=== PATIENT | female | born 2000 | race Caucasian/White ===

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

== ENCOUNTER 2018-05-15 11:13 | Emergency (ER) | payer MEDICAID ==
[~2018-05-15] VITALS: Ht 154.9 cm; Wt 53.6 kg
[2018-05-15 11:19] VITALS: Ht 154.9 cm; Wt 53.6 kg
[2018-05-15] MEDS ORDERED: OTC SLEEP AID (11:21)
[2018-05-15] MEDS ORDERED: PRENATAL (11:21)
[2018-05-15 11:42] LABS: BASOPHILS 0.3 % (0-2); EOSINOPHILS 0.5 % (0-7); HEMATOCRIT 39.1 % (36.0-48.0); HEMOGLOBIN 13.5 g/dL (12-16); IMMATURE GRANULOCYTES 0.4 % (0-5); LYMPHOCYTES 7.6 % (15-50); MCH 29.1 pg (26.0-34.0); MCHC 34.5 g/dL (31.0-37.0); MCV 84.3 fL (80.0-100.0); MEAN PLATELET VOLUME 9.7 fL (7.4-10.4); MONOCYTES 6.6 % (2-11); NEUTROPHILS 84.6 % (40-80); PLATELET COUNT 235 10x3/uL (130-400); RBC 4.64 10x6/uL (4.00-5.40); RDW 12.6 % (11.5-14.5); WBC 15.4 10x3/uL (4.8-10.8)
[2018-05-15 11:55] LABS: CREATININE - SERUM 0.7 mg/dL (0.6-1.3); GLUCOSE 95 mg/dL (74-106); UREA NITROGEN 7 mg/dL (7-18)
[2018-05-15 11:56] LABS: ALBUMIN 3.6 g/dL (3.4-5.0); ALKALINE PHOSPHATASE 67 U/L (46-116); ALT (SGPT) 61 U/L (10-68); BILIRUBIN - TOTAL 0.86 mg/dL (0.2-1.3); CALC OSMOLALITY 267 mosm/kg (275-300); CALCIUM 9.2 mg/dL (8.5-10.1); CARBON DIOXIDE 22.7 mmol/L (21.0-32.0); CHLORIDE - SERUM 100 mmol/L (98-107); POTASSIUM - SERUM 3.7 mmol/L (3.5-5.1); PROTEIN - SERUM 8.1 g/dL (6.4-8.2); SODIUM 135 mmol/L (136-145); eGFR NON AFRICAN AMERICAN > 90 mL/min (90-120)
[2018-05-15 12:26] LABS: APPEARANCE CLOUDY (CLEAR); BILIRUBIN NEGATIVE (NEGATIVE); COLOR DK YELLOW (YELLOW); GLUCOSE NEGATIVE (NEGATIVE); KETONE MODERATE mg/dL (NEGATIVE); NITRITE NEGATIVE (NEGATIVE); PROTEIN 1+ mg/dL (NEGATIVE); SPECIFIC GRAVITY 1.005 (1.005-1.020); UROBILINOGEN NORMAL (NORMAL)
[2018-05-15 12:28] LABS: BACTERIA FEW /hpf (NONE SEEN); EPITHELIAL CELLS 0-5 /hpf (0-5); MUCUS <1+ /lpf (NONE SEEN); RED CELLS - URINE 0-5 /hpf (0-5); WHITE CELLS - URINE 0-5 /hpf (0-5)
[2018-05-15] MEDS ORDERED: NORMODYNE / TR100 MG PO (13:12)
[2018-05-15 13:28] VITALS: BP 122/78
== END 2018-05-15 13:31 | disposition home or self-care (01) ==
LOC: D.ER 11:13
PROVIDERS: Emergency Medicine
DX: O26.891 Other specified pregnancy related conditions, first trimester (principal); Z3A.12 12 weeks gestation of pregnancy; R00.0 Tachycardia, unspecified; R06.02 Shortness of breath

== ENCOUNTER → 2018-06-03 08:26 | Outpatient (CLI) | payer BC ==
[2018-05-15 11:19] VITALS: BMI 22.3
--- NOTE | ~2018-06-03 | EC ---
PATIENT:EZIO HARDY DATE OF SERVICE: 06/03/18 SEX: F MEDICAL RECORD: [id number] DATE OF : [birth year] LOCATION:D.FORMERLY [facility] AGE OF PATIENT: 17 ADMISSION DATE: 06/03/18 REFERRING PHYSICIAN: INTERPRETING PHYSICIAN: HERNANDEZ SMITH MD ECHOCARDIOGRAM REPORT ECHO CHARGES 4 ECHO COMPLETE Date: 06/03/18 CLINICAL DIAGNOSIS: TACHYCARDIA, CHEST PAIN ECHOCARDIOGRAPHIC MEASUREMENTS (adult normal given) AC root (d.<3.7cm) 2.3 cm LV Septum d (<1.2 cm> 1.0 cm Valve Excursion 1.3 cm LV Septum (systole) 1.2 cm Left Atria (s.<4.0cm> 2.3 cm LVPW d(<1.2cm) 1.0 cm RV (d.<2.3cm) 2.7 cm LVPW (sytole) 1.1 cm LV diastole(<5.6CM) 3.8 cm MV E-F(>70mm/sec) cm LV systole 2.6 cm LVOT Diameter 1.5 cm MV exc.(>10mm) 1.9 cm Est.ejection fraction (50-75%) % DOPPLER: LVIT cm/sec A 48.0 cm/sec E 107 cm/sec LA cm/sec RVSP 26 mmHg LVOT 106 cm/sec AOP1/2T m/s Asc. Ao 142 cm/sec RVOT 83 cm/sec RA cm/sec PA 79 cm/sec AV Gradient Peak 8.09 mmHg AV Mean 4.41 mmHg AV Area 1.3 cm MV Gradient Peak 8.03 mmHg MV Mean 2.43 mmHg MV Area cm COMMENTS: Machine Fe[employer] Floorperson: Corey ARTEAGA [employer] Supervisor: Lisa Smith TAPE# PACS Pericardial Effusion N DATE OF SERVICE: PROCEDURE: Transthoracic echocardiogram. FINDINGS: 1. Left ventricle is normal with ejection fraction 60%. 2. The left atrium is normal. 3. The aortic valve is normal. 4. The mitral valve is normal. 5. The tricuspid valve has [id number] tricuspid regurgitation. RVSP is ECHOCARDIOGRAM REPORT [id number] EZIO HARDY normal. 6. The pericardium is normal. 7. The right ventricle is normal size, shape, structure, and function. 8. Right atrium is normal. CONCLUSIONS: This is a normal echocardiogram for the patient's stated age without structural or functional abnormalities. TRANSINT:[id number] Voice Confirmation ID: [id number] DOCUMENT ID: [id number] HERNANDEZ SMITH MD at 0738 CC: [id number] DICTATION DATE: 06/06/18909 ASSET PROTECTION AGENT: 06/06/18918 DEP CLI 06/03/[address] [address]
[~2018-06-03 08:26] MED LIST: NORMODYNE / TR100 MG PO; OTC SLEEP AID; PRENATAL
== END | disposition home or self-care (01) ==
LOC: D.ECHO 08:26
DX: R00.0 Tachycardia, unspecified (principal); R07.9 Chest pain, unspecified

== ENCOUNTER → 2018-07-06 09:14 | Outpatient (CLI) | payer BC ==
[~2018-07-06] VITALS: Ht 154.9 cm; Wt 54.0 kg
[2018-07-06 10:25] VITALS: Ht 154.9 cm; Wt 54.0 kg
== END | disposition home or self-care (01) ==
LOC: D.FANS 07-05 13:00
DX: Z13.21 Encounter for screening for nutritional disorder (principal)

== ENCOUNTER → 2018-10-07 11:59 | Outpatient (CLI) | payer BC ==
[2018-07-06 10:25] VITALS: BMI 22.4
[2018-10-07 13:49] LABS: UDS - AMPHET NEGATIVE QUAL (NEGATIVE); UDS - BARB NEGATIVE QUAL (NEGATIVE); UDS - BENZO NEGATIVE QUAL (NEGATIVE); UDS - COCAINE NEGATIVE QUAL (NEGATIVE); UDS - OPIATE NEGATIVE QUAL (NEGATIVE); UDS - PCP NEGATIVE QUAL (NEGATIVE); UDS - THC NEGATIVE QUAL (NEGATIVE)
[2018-10-07 14:26] LABS: APPEARANCE HAZY (CLEAR); BACTERIA FEW /hpf (NONE SEEN); BILIRUBIN NEGATIVE (NEGATIVE); COLOR YELLOW (YELLOW); EPITHELIAL CELLS RARE /hpf (0-5); GLUCOSE 50 mg/dL (NEGATIVE); KETONE NEGATIVE (NEGATIVE); NITRITE NEGATIVE (NEGATIVE); PROTEIN TRACE mg/dL (NEGATIVE); SPECIFIC GRAVITY 1.015 (1.005-1.020); UROBILINOGEN NORMAL (NORMAL); WHITE CELLS - URINE RARE /hpf (0-5)
== END | disposition home or self-care (01) ==
LOC: D.LDO 11:59
PROVIDERS: Obstetrics & Gynecology
DX: O26.893 Other specified pregnancy related conditions, third trimester (principal); Z3A.33 33 weeks gestation of pregnancy

== ENCOUNTER → 2018-10-11 09:29 | Outpatient (CLI) | payer BC ==
[2018-07-06 10:25] VITALS: BMI 22.4
== END | disposition home or self-care (01) ==
LOC: D.LDO 09:29
DX: O99.613 Diseases of the digestive system complicating pregnancy, third trimester (principal); Z3A.33 33 weeks gestation of pregnancy

== ENCOUNTER → 2018-10-13 08:46 | Outpatient (CLI) | payer BC ==
[2018-07-06 10:25] VITALS: BMI 22.4
== END | disposition home or self-care (01) ==
LOC: D.LDO 08:46
DX: O99.613 Diseases of the digestive system complicating pregnancy, third trimester (principal); Z3A.33 33 weeks gestation of pregnancy

== ENCOUNTER 2018-10-17 20:33 | Outpatient (CLI) | payer BC ==
[2018-07-06 10:25] VITALS: BMI 22.4
== END 2018-10-17 22:20 | disposition home or self-care (01) ==
LOC: D.LDO 20:33
DX: O36.8130 Decreased fetal movements, third trimester, not applicable or unspecified (principal); Z3A.34 34 weeks gestation of pregnancy

== ENCOUNTER → 2018-10-18 09:20 | Outpatient (CLI) | payer BC ==
[2018-07-06 10:25] VITALS: BMI 22.4
[~2018-10-18 09:20] MED LIST changes: +ACTIGALL 300 M300 MG PO; +IBUPROFEN800 MG PO; +PRENAVITE1 TAB PO; +UNISOM SLEEP AI25 MG PO
[2018-10-28 00:24] VITALS: BMI 26.7
== END | disposition home or self-care (01) ==
LOC: D.LDO 09:20
DX: O99.619 Diseases of the digestive system complicating pregnancy, unspecified trimester (principal); Z3A.00 Weeks of gestation of pregnancy not specified

== ENCOUNTER → 2018-10-20 16:20 | Outpatient (CLI) | payer BC ==
[2018-07-06 10:25] VITALS: BMI 22.4
[2018-10-28 00:24] VITALS: BMI 26.7
== END | disposition home or self-care (01) ==
LOC: D.LDO 16:20
DX: O99.619 Diseases of the digestive system complicating pregnancy, unspecified trimester (principal); Z3A.00 Weeks of gestation of pregnancy not specified

== ENCOUNTER → 2018-10-23 09:15 | Outpatient (CLI) | payer BC ==
[2018-07-06 10:25] VITALS: BMI 22.4
[2018-10-28 00:24] VITALS: BMI 26.7
== END | disposition home or self-care (01) ==
LOC: D.LDO 09:15
DX: O26.899 Other specified pregnancy related conditions, unspecified trimester (principal); Z3A.00 Weeks of gestation of pregnancy not specified

== ENCOUNTER → 2018-10-24 09:26 | Outpatient (CLI) | payer BC ==
[2018-07-06 10:25] VITALS: BMI 22.4
[2018-10-28 00:24] VITALS: BMI 26.7
== END | disposition home or self-care (01) ==
LOC: D.LDO 09:26
DX: O99.619 Diseases of the digestive system complicating pregnancy, unspecified trimester (principal); Z3A.00 Weeks of gestation of pregnancy not specified

== ENCOUNTER 2018-10-27 22:46 | Inpatient (IN) | payer BC, MEDICAID ==
[~2018-10-27] VITALS: Ht 154.9 cm; Wt 64.0 kg
[~2018-10-27 22:46] MED LIST changes: -ACTIGALL 300 M300 MG PO; -IBUPROFEN800 MG PO; -PRENAVITE1 TAB PO; -UNISOM SLEEP AI25 MG PO
[2018-10-27] MEDS ORDERED: ACTIGALL 300 M300 MG PO (23:22)
[2018-10-27] MEDS ORDERED: UNISOM SLEEP AI25 MG PO (23:22)
[2018-10-27] MEDS ORDERED: PRENAVITE1 TAB PO (23:23)
[2018-10-28 00:24] VITALS: BP 110/65; Ht 154.9 cm; Wt 64.0 kg
[2018-10-28 00:51] LABS: HEMATOCRIT 32.3 % (36.0-48.0); HEMOGLOBIN 10.8 g/dL (12-16); MCH 29.4 pg (26.0-34.0); MCHC 33.4 g/dL (31.0-37.0); MEAN PLATELET VOLUME 10.8 fL (7.4-10.4); RBC 3.67 10x6/uL (4.00-5.40)
[2018-10-28 19:22] VITALS: BP 122/73
--- NOTE | 2018-10-28 19:22 | NUR ---
PT REC'D IN BED AT THIS TIME. COMPLAINS OF PAIN AT 4 TO ABDOMEN AND PERINEUM. IV OF PITOCIN COMPLETED AT THIS TIME. SITE SALINE LOCKED TO THE RT ARM. SITE CLEAR AND PATENT. LUNGS CLEAR. BS+. FUNDUS FIRM. DISPLACED TO THE RIGHT 2/U. LIGHT BLEEDING NOTED. PT UP TO THE RESTROOM AT 194 TO VOID. + VOID NOTED. FUNDAL HEIGHT POST-VOID U/1 AND FIRM. STILL WITH LIGHT BLEEDING NOTED. PT ASSISTED WITH HYGIENE AND ICE PACK TO PERINEUM PLACED. PT TO WHEELCHAIR AND MOVED TO ROOM 1273 AT 1953. PT TOLERATED WELL. NO ACUTE DISTRESS NOTED. PT ORIENTED TO ROOM AND CALL LIGHT. SIDERAILS UP FOR SAFETY. CALL LIGHT IN EASY REACH. Magaly LIVE RN
--- NOTE | 2018-10-28 20:08 | NUR ---
PT MEDICATED WITH MOTRIN FOR PAIN LEVEL OF 4. WILL CONTINUE TO MONITOR PAIN THIS SHIFT. SIDERALIS UP FOR SAFETY. CALL LIGHT IN EASY REACH. Magaly LIVE RN
--- NOTE | 2018-10-28 21:24 | NUR ---
PT REC'D ORAL DOSE OF MILK OF MAGNESIA AT THIS TIME. PT TOLERATED WELL. NO DISTRESS NOTED AT THIS TIME. Magaly LIVE RN
--- NOTE | 2018-10-28 22:50 | NUR ---
PT REC'D IN BED AT THIS TIME. BREASFEEDING INFANT AT THIS TIME. PAIN MED OFFERED FOR PAIN OF 3 BUT REFUSED AT THIS TIME. WILL MONITOR. Magaly LIVE RN
--- NOTE | 2018-10-29 | NUR ---
PT ASLEEP AT THIS TIME. DID NOT AWAKEN. SIDERAILS UP FOR SAFETY. CALL LIGHT IN PT REACH. Magaly LIVE RN
--- NOTE | 2018-10-29 01:45 | NUR ---
PT ASLEEP DID NOT AWAKEN AT THIS TIME. WILL MONITOR FOR PAIN. Magaly LIVE RN
--- NOTE | 2018-10-29 02:50 | NUR ---
PT MEDICATED FOR A PAIN LEVEL OF 5 WITH TYLENOL #3. WILL CONTINUE TO MONITOR. SIDERAILS UP FOR SAFETY. CALL LIGHT IN PT REACH. Magaly LIVE RN
[2018-10-29 04:22] VITALS: BP 87/52
--- NOTE | 2018-10-29 04:29 | NUR ---
PT REC'D IN BED AT THIS TIME. EASILY AWAKENED. MEDICATED WITH MOTRIN 800 SCHEDULED. FUNDUS REMIANS FIRM AND MIDLINE THIS AM U/2. SMALL AMOUNT OF LOCHIA NOTED. DENIES PAIN. SIDERAILS UP FOR SAFETY. CALL LIGHT IN PT REACH. Magaly LIVE RN
[2018-10-29 06:05] LABS: HEMATOCRIT 32.3 % (36.0-48.0); HEMOGLOBIN 10.7 g/dL (12-16); MCH 29.2 pg (26.0-34.0); MCHC 33.1 g/dL (31.0-37.0); MCV 88.3 fL (80.0-100.0); MEAN PLATELET VOLUME 10.5 fL (7.4-10.4); PLATELET COUNT 211 10x3/uL (130-400); RBC 3.66 10x6/uL (4.00-5.40); RDW 13.2 % (11.5-14.5); WBC 23.2 10x3/uL (4.8-10.8)
--- NOTE | 2018-10-29 06:35 | NUR ---
PT REC'D IN BED AT THIS TIME. INFANT. NO COMPLAINTS OF PAIN NOTED AT THIS TME. SIDERAILS UP FOR SAFETY. CALL LIGHTIN PT DAVID. Magaly LIVE RN
[2018-10-29 06:48] LABS: LYMPHOCYTES 6 % (15-50); MONOCYTES 2 % (2-11); NEUTROPHILS 86 % (40-80); PLATELET ESTIMATE NORMAL
[2018-10-29 07:37] VITALS: BP 102/63
--- NOTE | 2018-10-29 07:37 | NUR ---
RECEIVED PT LYING SUPINE IN BED. VSS. HRRR WITHOUT AUDIBLE MURMUR. BBS CLEAR. BS X 4. ABDOMEN SOFT/NON-DISTENDED. FUNDUS FIRM AT U/2. RUBRA LOCHIA SMALL AMT. PERINEUM WITH MOD AMT OF EDEMA. SKIN TO AREA PINK. NEG HOMANS' SIGN. PPP. NO EDEMA NOTED TO BLE. PT C/O PAIN TO PERINEUM OF "3" ON 0-10 PAIN SCALE. DECLINES PAIN MED AT THIS TIME. SL TO RIGHT WRIST CLEAR. SR UPX 2. CALL LIGHT IN REACH.
[2018-10-29 08:16] LABS: RAPID PLASMA REAGIN Non Reactive (Non Reactive)
--- NOTE | 2018-10-29 09:10 | NUR ---
DR MCGUIRE PHONED REGARDING CLARIFICATION ON ANTIBIOTIC ORDER FROM PLAN IN PROGRESS NOTE. ORDER RECEIVED FOR ANCEF 2G IV Q6H x 1DAY FOR INFECTION OF UNKNOWN CAUSE. WILL PROCEED ORDERED.
--- NOTE | 2018-10-29 09:14 | NUR ---
PT INFORMED OF ORDER RECEIVED FOR IV ANTIBIOTICS. PT VERBALIZES UNDERSTANDING.
--- NOTE | 2018-10-29 09:37 | NUR ---
SL TO RIGHT WRIST FLUSHES EASILY WITH 5 ML NS. LR STARTED PRIMARY INFUSION AND ANCEF 2 GRAMS STARTED IVPB. PT INSTRUCTED ON MED. VERBALIZES UNDERSTANDING.
--- NOTE | 2018-10-29 10:00 | NUR ---
DIAPER ICE PACK PROVIDED TO PT FOR COMFORT.
--- NOTE | 2018-10-29 10:25 | NUR ---
DR MCGUIRE TO PT ROOM.
--- NOTE | 2018-10-29 11:12 | NUR ---
PT CALLS ON LIGHT. REQUESTS AND RECEIVES TYLENOL #3 1 TABLET PO ORDERED. PT INSTRUCTED ON MED. VERBALIZES UNDERSTANDING.
--- NOTE | 2018-10-29 12:00 | NUR ---
PT SITTING UP IN BED. CONSUMING LUNCH. DENIES PAIN.
--- NOTE | 2018-10-29 13:29 | NUR ---
PT AMBULATORY IN ROOM/BATHROOM. REQUESTS AND RECEIVES DIAPER ICE PACK AND MOTRIN PER PT REQUEST.
--- NOTE | 2018-10-29 14:15 | NUR ---
PT LYING SUPINE IN BED. EYES CLOSED. RESP NON-LABORED. PT DENIES C/O PAIN OR NEEDS.
--- NOTE | 2018-10-29 16:22 | NUR ---
SL FLUSHES EASILY WITH 5 ML NS. ANCEF 2 GRAMS STARTED VIA ALARIS PUMP. PIV SITE CLEAR. PT VSS. REQUESTS AND RECEIVES ICE WATER.
[2018-10-29 16:29] VITALS: BP 106/69
--- NOTE | 2018-10-29 19:27 | NUR ---
RN TO BEDSIDE. PT VISITING WITH VISITORS. REQUESTS ASSESSMENT BE COMPLETED AT LATER TIME. VISITORS HOLDING INFANT. ICE WATER REQUESTED AND PROVIDED. DENIES ADDITIONAL NEEDS. BED IN LOW POSITION WITH UPPER SIDE RAILS RAISED X2. CALL LIGHT AND PHONE WITHIN REACH. WILL CONTINUE TO MONITOR AND ASSIST PRN.
--- NOTE | 2018-10-29 20:13 | NUR ---
GETTING UP TO GO TO BATHROOM. DENIES NEED FOR ASSISTANCE AT THIS TIME. DENIES DIZZINESS, STEADY GAIT NOTED. PT REPORTS THAT SHE IS DOING PERICARE WITH PERIBOTTLE WITH WATER AND BETADINE, TUX, AND DERMAPLAST. ALERT AND ORIENTED X3. BED IN LOW POSITION WITH UPPER SIDE RAILS RAISED X2. CALL LIGHT AND PHONE WITHIN REACH. SIGNIFICANT OTHER AT BEDSIDE WITH PT HOLDING INFANT, ATTENTIVE AND SUPPORTIVE OF PT. WILL CONTINUE TO MONITOR AND ASSIST PRN.
--- NOTE | 2018-10-29 20:55 | NUR ---
PT BACK IN BED. SHIFT ASSESSMENT COMPLETED. PAIN 2-3/10, PERINEAL STINGING ("REALLY JUST AFTER I PEE.") AND "SORE." DENIES NEED FOR INTERVENTION AT THIS TIME, STATES THAT SHE WILL JUST TAKE THE NEXT SCHEDULED MOTRIN AT 2130. FUNDUS FIRM, MIDLINE AND U2, WITH LIGHT RUBRA LOCHIA, PT DENIES PASSING ANY CLOTS. BOWEL SOUNDS PRESENT AND ACTIVE X4. STATES THAT SHE BF, AND REPORTS THAT RIGHT NIPPLE IS SORE, CRACKING NOTED. LANOLIN PROVIDED, INSTRUCTED ON USE WITH UNDERSTANDING VERBALIZED. BREATH SOUNDS CLEAR AND EQUAL. 1+ BLE EDEMA NOTED. SLIGHT PURPLE ECCHYMOSIS NOTED TO LOWER RIGHT LABIA. SUTURES WELL APPROXIMATED AND INTACT, NO S/S OF INFECTION NOTED. PT EDUCATED ON MOM, DENIES QUESTIONS. REFUSED LINEN CHANGE AT THIS TIME, STATES THAT SHE HASN'T SHOWERED YET AND WILL NOTIFY RN WHEN SHE DOES FOR LINEN TO BE DONE AT THAT TIME. FOB HOLDING . AMADOR SCOTT RN AT BEDSIDE ALSO PREPARING TO ASSIST PT TO BF UPON THIS RN LEAVING BEDSIDE.
--- NOTE | 2018-10-29 21:45 | NUR ---
ANCEF GIVEN PER ORDER. STATES THAT SHE HAS NO PAIN AT REST BUT RATES PAIN 3/10 WITH ACTIVITY OR WHEN VOIDING TO PERINEAL AREA. SCHEDULED MOTRIN GIVEN PER ORDER. DENIES NEED FOR ADDITIONAL INTERVENTION FOR PAIN AT THIS TIME. ICE WATER PROVIDED. PT BONDING WITH INFANT SKIN TO SKIN AT THIS TIME. BED IN LOW POSITION WITH UPPER SIDE RAILS RAISED X2. CALL LIGHT AND PHONE WITHIN REACH. SIGNIFICANT OTHER REMAINS AT BEDSIDE. WILL CONTINUE TO MONITOR.
--- NOTE | 2018-10-29 22:30 | NUR ---
PAIN REASSESSMENT COMPLETED. . CONTINUES TO FORD WITH INFANT SKIN TO SKIN. DENIES NEEDS. BED IN LOW POSITION WITH UPPER SIDE RAILS RAISED X2. CALL LIGHT AND PHONE WITHIN REACH. QUESTIONS REGARDING DIET WHILE BF ANSWERED. WILL CONTINUE TO MONITOR AND ASSIST PRN.
--- NOTE | 2018-10-29 23:15 | NUR ---
RN TO BEDSIDE. CRYING IN OPEN CRIB, PT STATES THAT SHE JUST PUT INFANT DOWN TO VOID AND WAS FIXING TO BF. STATES THAT SHE IS WAITING ON NBN RN TO CHECK BLOOD SUGAR PRIOR TO NURSING . DENIES PAIN AND NEEDS AT THIS TIME. BED IN LOW POSITION WITH UPPER SIDE RAILS RAISED X2. CALL LIGHT AND PHONE WITHIN REACH. SIGNIFICANT OTHER REMAINS AT BEDSIDE SUPPORTIVE AND ATTENTIVE TO PT AND INFANT. WILL CONTINUE TO MONITOR AND ASSIST PRN.
--- NOTE | 2018-10-30 01:08 | NUR ---
ROUNDS MADE. PT WITH SKIN TO SKIN, REPORTS THAT SHE JUST COMPLETED BF. REQUEST RN TAKE INFANT TO NBN SO THAT SHE CAN REST. DENIES PAIN AND NEEDS AT THIS TIME. SIGNIFICANT OTHER RESTING AT BEDSIDE. BED IN LOW POSITION WITH UPPER SIDE RAILS RAISED X2. CALL LIGHT AND PHONE WITHIN REACH. WILL CONTINUE TO MONITOR AND ASSIST PRN. TO NBN SWADDLED IN 2 BLANKETS, HAT ON IN OPEN CRIB.
--- NOTE | 2018-10-30 03:04 | NUR ---
PT RESTING WITH EYES CLOSED ON LAYING ON LEFT SIDE. RESPIRATIONS REGULAR AND UNLABORED, NO S/S OF DISTRESS NOTED. REMAINS IN NBN. BED IN LOW POSITION WITH UPPER SIDE RAILS RAISED X2. CALL LIGHT AND PHONE WITHIN REACH. WILL CONTINUE TO MONITOR AND ASSIST PRN. SIGNIFICANT OTHER RESTING ON COUCH AT BEDSIDE.
--- NOTE | 2018-10-30 03:44 | NUR ---
ANCEF INFUSING PER ORDER. PT BF AT THIS TIME. NO S/S OF INFILTRATION AT PIV TO RIGHT FA. DENIES PAIN. REPORTS THAT SHE IS CONTINUING TO DO PERICARE WITH PERIBOTTLE AND WATER/BETADINE MIXTURE, DERMAPLAST, AND TUX. ICE WATER PROVIDED. DENIES ADDITIONAL NEEDS. BED IN LOW POSITION WITH UPPER SIDE RAILS RAISED X2. CALL LIGHT AND PHONE WITHIN REACH. WILL CONTINUE TO MONITOR AND ASSIST PRN.
--- NOTE | 2018-10-30 04:20 | NUR ---
ANCEF INFUSION COMPLETE. PIV SL. NO S/S OF INFILITRATION NOTED. BED IN LOW POSITION WITH UPPER SIDE RAILS RAISED X2. CALL LIGHT AND PHONE WITHIN REACH. WILL CONTINUE TO MONITOR AND ASSIST PRN.
--- NOTE | 2018-10-30 05:53 | NUR ---
SCHEDULED MOTRIN GIVEN PER ORDER. PT RESTING WITH EYES CLOSED LAYING ON LEFT SIDE. DENIES PAIN AT THIS TIME. ICE WATER PROVIDED. DENIES NEEDS. BED IN LOW POSITION WITH UPPER SIDE RAILS RAISED X2. CALL LIGHT AND PHONE WITHIN REACH. WILL CONTINUE TO MONITOR AND ASSIST PRN. INFANT IN NBN AT THIS TIME.
[2018-10-30 06:18] LABS: BASOPHILS 0.5 % (0-2); EOSINOPHILS 1.7 % (0-7); HEMATOCRIT 31.8 % (36.0-48.0); HEMOGLOBIN 10.4 g/dL (12-16); IMMATURE GRANULOCYTES 3.7 % (0-5); LYMPHOCYTES 21.9 % (15-50); MCH 29.1 pg (26.0-34.0); MCHC 32.7 g/dL (31.0-37.0); MCV 89.1 fL (80.0-100.0); MEAN PLATELET VOLUME 9.9 fL (7.4-10.4); MONOCYTES 8.7 % (2-11); NEUTROPHILS 63.5 % (40-80); PLATELET COUNT 202 10x3/uL (130-400); RBC 3.57 10x6/uL (4.00-5.40); RDW 13.3 % (11.5-14.5)
[2018-10-30 06:19] LABS: WBC 14.9 10x3/uL (4.8-10.8)
[2018-10-30 06:37] LABS: ALBUMIN 2.2 g/dL (3.4-5.0); ALKALINE PHOSPHATASE 146 U/L (46-116); ALT (SGPT) 41 U/L (10-68); BILIRUBIN - TOTAL 0.21 mg/dL (0.2-1.3); CALC OSMOLALITY 270 mosm/kg (275-300); CALCIUM 8.2 mg/dL (8.5-10.1); CARBON DIOXIDE 22.3 mmol/L (21.0-32.0); CHLORIDE - SERUM 104 mmol/L (98-107); CREATININE - SERUM 0.6 mg/dL (0.6-1.3); GLUCOSE 77 mg/dL (74-106); POTASSIUM - SERUM 3.8 mmol/L (3.5-5.1); PROTEIN - SERUM 6.3 g/dL (6.4-8.2); SODIUM 137 mmol/L (136-145); UREA NITROGEN 7 mg/dL (7-18); eGFR NON AFRICAN AMERICAN > 90 mL/min (90-120)
[2018-10-30 07:40] VITALS: BP 101/55
--- NOTE | 2018-10-30 07:40 | NUR ---
RECEIVED PT SITTING UP IN BED. CARING FOR INFANT WITH MUCH WARMTH SHOWN. AAO X 3. VSS. HRRR WITHOUT AUDIBLE MURMUR. BBS CLEAR. BS X 4. ABDOMEN PALPATES SOFT. FUNDUS FIRM AT U/3. RUBRA LOCHIA SMALL AMT. PERINEUM WITH SLIGHT EDEMA. PT STATES PAIN TO PERINEUM IMPROVING. NEG HOMANS' SIGN. PPP. NO EDEMA NOTED TO BLE. SL TO RIGHT WRIST. SITE CLEAR. PT DENIES C/O OR NEEDS. SR UPX 2. CALL LIGHT IN REACH.
--- NOTE | 2018-10-30 08:50 | NUR ---
PT SITTING UP IN BED. VISITS WITH SO. DENIES C/O OR NEEDS.
[2018-10-30] MEDS ORDERED: IBUPROFEN800 MG PO (09:29)
--- NOTE | 2018-10-30 10:17 | NUR ---
T/C TO DR MCGUIRE TO CLARIFY ANCEF ORDER Q6 X 4 DOSES AND TO REPORT LAB RESULTS. STATES HAS REVIEWED LABS AND PT TO HAVE A TOTAL OF 4 DOSES. STATES WILL COME SEE PT.
--- NOTE | 2018-10-30 10:45 | NUR ---
DR MCGUIRE TO ROOM.
--- NOTE | 2018-10-30 11:04 | NUR ---
DR MCGUIRE AT [facility]. STATES PT MAY ROOM IN IF NOT DISCHARGED TODAY.
--- NOTE | 2018-10-30 12:54 | NUR ---
PT C/O PAIN TO PERINEUM OF "3" ON 0-10 PAIN SCALE. TYLENOL #3 1 TAB GIVEN PO ORDERED.
--- NOTE | 2018-10-30 14:00 | NUR ---
PT SITTING UP IN BED. VISITS WITH SO. DENIES C/O PAIN OR NEEDS.
--- NOTE | 2018-10-30 15:30 | NUR ---
PT AMBULATORY IN ROOM. CARING FOR UNDER BILI LIGHTS IN ROOM. FUSSY AT THIS TIME. MUCH WARMTH SHOWN BY PT TOWARDS . PT DENIES C/O OR NEEDS.
--- NOTE | 2018-10-30 16:43 | NUR ---
PT AMBULATORY IN ROOM. VISITS WITH GRANDPARENTS. REGULAR DIET NOTED ON BEDSIDE TABLE. PT ENCOURAGED TO EAT, FEED INFANT AT 1700 AND CALL THIS NURSE FOR DISCHARGE PAPERWORK WHEN READY. PT VERBALIZES UNDERSTANDING.
--- NOTE | 2018-10-30 18:00 | NUR ---
ROOMING IN POLICY EXPLAINED TO AND SIGNED BY PT. PT NEEDING TO CHANGE 'S DIAPER AT THIS TIME. WILL NOTIFY NURSE WHEN READY FOR DISCHARGE PAPERS.
--- NOTE | 2018-10-30 19:16 | NUR ---
RN TO BEDSIDE. PT REFUSES SHIFT ASSESSMENT AT THIS TIME. STATES THAT SHE WOULD LIKE DISCHARGE INSTRUCTIONS AND BE DISCHARGED TO ROOM-IN. DISCHARGE INSTRUCTIONS REVIEWED, QUESTIONS ANSWERED. PT VERBALIZED UNDERSTANDING, STATES THAT FAMILY MEMBERS ARE BRING BACK MEDS FOR HER. REQUEST BREAST PUMP TO USE FOLLOWING EACH NURSING SESSION, AMADOR HARTMAN RN NOTIFIED AND WILL BRING BREAST PUMP TO ROOM AND INSTRUCT PT ON USE. PT DENIES ADDITIONAL NEEDS. LINENS CHANGED PER REQUEST.
== END 2018-10-30 19:45 | disposition home or self-care (01) | DRG 807 ==
LOC: D.LD 22:46
PROVIDERS: ADMIT Obstetrics & Gynecology
PROC: 10E0XZZ Delivery of Products of Conception, External Approach (ICD-10-PCS; principal; 2018-10-28)
PROC: 0KQM0ZZ Repair Perineum Muscle, Open Approach (ICD-10-PCS; 2018-10-28)
PROC: 3E033VJ Introduction of Other Hormone into Peripheral Vein, Percutaneous Approach (ICD-10-PCS; 2018-10-28)
DX: O26.62 Liver and biliary tract disorders in childbirth (principal); Z37.0 Single live birth; O99.824 Streptococcus B carrier state complicating childbirth; Z3A.36 36 weeks gestation of pregnancy; O26.03 Excessive weight gain in pregnancy, third trimester